=== PATIENT | male | born 1965 | race Caucasian/White ===

== ENCOUNTER 2018-01-05 10:37 | Inpatient (IN) | payer OTHER ==
[~2018-01-05] VITALS: Ht 177.8 cm; Wt 71.9 kg
--- NOTE | ~2018-01-05 | O ---
[place], [place] OPERATIVE NOTE NAME: [facility]ITA [id number] UNIT #: [id number] ROOM: 524 DOCTOR: CARLOS WARD DO BIRTHDATE: [birth year] DOS: 01/07/2018 PREOPERATIVE DIAGNOSIS: Left tibia and fibular fracture with displacement and angulation. POSTOPERATIVE DIAGNOSIS: Left tibia and fibular fracture with displacement and angulation. OPERATIVE PROCEDURE: Intramedullary janny fixation of the left tibial fracture. SURGEON: Carlos Ward DO HUMAN RESOURCES OFFICER: Sreekanth Molina. ANESTHESIA: LEAH Shanks. General endotracheal. INDICATIONS: The patient is a 52-year-old male with a history of an injury at work where he was exercising a horse and the horse ran him into a fence causing a comminuted displaced distal tibia and fibula fracture. The risks and benefits of the procedure were explained to the patient preoperatively. Preoperative labs and x-rays were obtained. PROCEDURE IN DETAIL: The left lower extremity was marked in the holding room. The patient was brought to the operative suite. A general anesthetic with endotracheal intubation was performed. The patient had previously received adductor block by Anesthesia. The patient was placed supine on the operative table. General anesthetic with endotracheal intubation was performed. The timeout was performed. The patient received Ancef 2 grams IV piggyback preoperatively. Tourniquet was placed on the left upper thigh. The extremity was prepped and draped in the usual orthopedic fashion. The tourniquet was not inflated. The C-arm was utilized to evaluate the fracture site as well as the entry site of the proximal tibia. The incision was marked between the mid patella and the tibial tubercle. The area was injected with Marcaine 0.5% with epinephrine. The incision was made sharply with a scalpel. Subcutaneous tissue was spread down to the level of the paratenon. This was divided. The patellar tendon was divided longitudinally along its fibers. A partially threaded guidewire was placed anteriorly, proximal to the tibial tubercle in an antegrade fashion. Position was evaluated under C-arm. When this was found to be adequate, the cannulated awl was placed over the guidewire. The ball-tipped guidewire was then placed at the entry point and followed under C-arm through the medullary canal and across the fracture site into the distal femur to the level of the physeal scar. When this was adequately positioned, the cannulated flexible reamers were placed over the guide janny and beginning with an 8 mm reamer, progressed 0.5 mm increments to a 10 mm reamer. When this was found to be adequate, the T1 janny measuring 345 mm x 9 mm was placed over the guide janny and advanced distally crossing the fracture site and into the distal tibia to the level of the physeal scar. When this was found to be adequate, the [place], [place] OPERATIVE NOTE NAME: ZACHARY KEITA UNIT #: [id number] ROOM: 524 DOCTOR: CARLOS WARD DO BIRTHDATE: [birth year] radiolucent aiming device was placed proximally and a medial and lateral oblique screw were placed through the guide. The triple cannula system was utilized advancing to the skin. The skin was injected with Marcaine 0.5% with epinephrine. A small skin incision was made. Subcutaneous tissue was spread down to the level of the bone. The cannula was advanced to the bone. The drill was used through the cannula. The length was then measured for the screw. The screw was advanced in a bicortical fashion by hand. When this was found to be adequate, the proximal aiming device was removed. Using a freehand technique, the screw holes were visualized and the skin was injected with Marcaine 0.5% with epinephrine. A small incision was made. Subcutaneous tissue was spread down to the level of the bone. Under the freehand technique, the drill was placed first from anterior to posterior through the distal locking hole. The length was measured. The screw was then advanced under C-arm guidance. The technique was repeated. This was from a medial to lateral direction. When this was completed, the positions were evaluated under C-arm at the proximal tibial nail, the distal tibial nail and the fracture site. This was found to be adequate. The areas were copiously irrigated with normal saline. The wound was closed with 0 Vicryl for the patellar tendon followed by 2-0 Vicryl for the paratenon and subcutaneous layer. Skin rebecca completed the closure. The four small incisions were copiously irrigated with normal saline and closed with 2-0 Vicryl followed by skin rebecca. The dressing was completed with Xeroform, 4 x 4s, multiple layers of cast padding, ABDs, and an Yoan bandage. The anesthetic was reversed. The patient was extubated and taken to the recovery room in satisfactory condition. Sponge and needle count correct. ESTIMATED BLOOD LOSS: 250 mL. SPECIMENS: None. DRAINS: None. PACKING: None. COMPLICATIONS: None. FINDINGS: Fracture of the distal one-third of the tibia and fibular shaft left with comminution and displacement. IMPLANTS: Synthes T1 IM janny EX 345 x 9 mm. Locking screws, 4.0 mm x 46, 24, 38, 22. [place], [place] OPERATIVE NOTE NAME: ZACHARY KEITA UNIT #: [id number] ROOM: 524 DOCTOR: CARLOS WARD DO BIRTHDATE: [birth year] CARLOS WARD DO CM:OPRECORD:OPERATIVE NOTE 58 36 CARLOS WARD DO 01/07/182034 interface
--- NOTE | ~2018-01-05 | EKG ---
[place], [place] ELECTROCARDIOGRAM REPORT NAME: ZACHARY KEITA UNIT #: [id number] ROOM: 524 DOCTOR: SIM DRAFT REPORT BIRTHDATE: [birth year] [facility] Test Date: 2018-01-05 Test Time: 12:18:26 Pat Name: ZACHARY KEITA Department: Room: 524 Gender: M Insurance Examiner: CHERYL : 1965 Requested By: DANIELLE GONGORA Order Number: [id number] Reading MD: Олег Bates MD Measurements Intervals [place] Rate: 84 P: 50 [place]: 131 QRS: -43 QRSD: 90 T: 51 QT: 374 QTc: 443 Interpretive Statements Sinus rhythm Electronically Signed On 01-05-2018 18:44:55 PDT by Олег Bates MD CM:EKGRPT:ELECTROCARDIOGRAM REPORT [id number] DANIELLE GONGORA EPIPHANY DRAFT REPORT DANIELLE GONGORA
[2018-01-05 08:00] VITALS: BP 121/79
[~2018-01-05 10:37] MED LIST: ALBUTEROL0.09 MG/A2 IH; CORDROL20 MG PO; FIORICET 325 MG1 TAB PO; ORASONE5 MG PO; PHENERGAN W/ COD5 ML PO; VIBRAMYCIN100 MG PO; ZOFRAN ODT4 MG PO
[2018-01-05 10:44] VITALS: BP 123/77
[2018-01-05 12:00] VITALS: BP 137/75
[2018-01-05 12:25] LABS: BASO # 0.1 10*3/uL (0.0-0.1); BASO % 0.4 % (0.0-1.0); EOS # 0.3 10*3/uL (0.0-0.4); EOS % 2.1 % (1.0-4.0); HEMATOCRIT 46.7 % (42.0-52.0); HEMOGLOBIN 15.5 g/dl (14.0-18.0); LYMPH # 0.9 10*3/uL (1.3-4.4); MEAN CELL VOLUME 96.3 fl (80.0-94.0); MEAN CORPUSCULAR HGB CONC 33.2 g/dl (33.0-37.0); MEAN PLATELET VOLUME 9.3 fl (9.6-12.3); MONO # 1.1 10*3/uL (0.1-1.0); MONO % 8.6 % (3.0-9.0); NEUT # 10.3 10*3/uL (2.3-7.9); NEUT % 81.6 % (47.0-73.0); PLATELET COUNT AUTOMATED 221 10*3/uL (130-400); RED BLOOD COUNT 4.85 10*6/uL (4.50-5.90); RED CELL DISTRI WIDTH 12.6 % (0-14.5); WHITE BLOOD COUNT 12.7 10*3/uL (4.8-10.8)
[2018-01-05 12:38] LABS: ALBUMIN 4.2 gm/dl (3.1-4.5); ALKALINE PHOSPHATASE 72 U/L (45-117); BUN 15 mg/dl (7-24); CHLORIDE 103 mmol/L (98-107); CREATININE 1.37 mg/dL (0.70-1.30); POTASSIUM 4.2 mmol/L (3.5-5.1); SGOT/AST 20 IU/L (3-35); SGPT/ALT 28 U/L (12-78); SODIUM 139 mmol/L (136-145); TOTAL PROTEIN 7.9 gm/dL (6.4-8.2)
[2018-01-05 13:06] LABS: BILIRUBIN NEGATIVE (NEGATIVE); BLOOD NEGATIVE (NEGATIVE); CLARITY SL CLOUDY (CLEAR); COLOR YELLOW (YELLOW); GLUCOSE NEGATIVE (NEGATIVE); KETONE NEGATIVE (NEGATIVE); LEUKO ESTERASE NEGATIVE (NEGATIVE); NITRITE NEGATIVE (NEGATIVE); SPECIFIC GRAVITY >= 1.030 (1.005-1.030); UROBILINOGEN 0.2 E.U./dl (0.2-1.0)
[2018-01-05 13:28] LABS: BACTERIA TRACE; CALCIUM OXALATE CRYSTALS 1+; MUCOUS 2+
[2018-01-05 14:00] VITALS: BP 121/75
[2018-01-05] MEDS ORDERED: ACID REDUCER20 MG PO (14:35)
[2018-01-05 20:00] VITALS: BP 119/60
[2018-01-06] VITALS (7 sets, daily range): BP systolic 123–139; BP diastolic 65–105
[2018-01-06 06:55] LABS: BASO # 0.1 10*3/uL (0.0-0.1); BASO % 0.8 % (0.0-1.0); EOS # 0.5 10*3/uL (0.0-0.4); EOS % 6.4 % (1.0-4.0); LYMPH # 1.6 10*3/uL (1.3-4.4); LYMPH % 20.2 % (27.0-41.0); MEAN CELL VOLUME 97.4 fl (80.0-94.0); MEAN CORPUSCULAR HGB 32.4 pg (27.0-31.0); MEAN CORPUSCULAR HGB CONC 33.2 g/dl (33.0-37.0); MEAN PLATELET VOLUME 9.7 fl (9.6-12.3); MONO # 1.1 10*3/uL (0.1-1.0); MONO % 13.8 % (3.0-9.0); NEUT # 4.6 10*3/uL (2.3-7.9); NEUT % 58.5 % (47.0-73.0); PLATELET COUNT AUTOMATED 163 10*3/uL (130-400); RED BLOOD COUNT 3.86 10*6/uL (4.50-5.90); RED CELL DISTRI WIDTH 12.6 % (0-14.5); WHITE BLOOD COUNT 7.8 10*3/uL (4.8-10.8)
[2018-01-06 07:10] LABS: ALKALINE PHOSPHATASE 56 U/L (45-117); BUN 12 mg/dl (7-24); CHLORIDE 108 mmol/L (98-107); CHOLESTEROL 119 mg/dL (<200); CREATININE 1.08 mg/dL (0.70-1.30); HDL CHOLESTEROL 49 mg/dl (40-60); LDL CHOLESTEROL 59 mg/dL (9-159); POTASSIUM 3.9 mmol/L (3.5-5.1); SGOT/AST 14 IU/L (3-35); SGPT/ALT 23 U/L (12-78); SODIUM 140 mmol/L (136-145); TOTAL PROTEIN 5.8 gm/dL (6.4-8.2); TRIGLYCERIDES 55 mg/dl (<150); VLDL CHOLESTEROL 11 mg/dL (6-40)
[2018-01-06 07:16] LABS: FREE T4 0.92 ng/dl (0.76-1.46)
[2018-01-06 07:19] LABS: ACT PARTIAL THROMBO TIME 22.5 SECONDS (20.8-31.5); HEMATOCRIT 37.6 % (42.0-52.0); HEMOGLOBIN 12.5 g/dl (14.0-18.0); INTERNATIONAL NORM RATIO 0.9 (2.0-3.5)
[2018-01-06 07:55] LABS: VITAMIN D, 25-HYDROXY 17.8 ng/mL (30-100)
[2018-01-07] VITALS (9 sets, daily range): BP systolic 111–148; BP diastolic 57–85
[2018-01-07 06:05] LABS: BASO # 0.1 10*3/uL (0.0-0.1); BASO % 0.7 % (0.0-1.0); EOS # 0.6 10*3/uL (0.0-0.4); EOS % 7.5 % (1.0-4.0); HEMOGLOBIN 13.6 g/dl (14.0-18.0); LYMPH # 1.6 10*3/uL (1.3-4.4); LYMPH % 19.2 % (27.0-41.0); MEAN CELL VOLUME 96.9 fl (80.0-94.0); MEAN CORPUSCULAR HGB 32.2 pg (27.0-31.0); MEAN CORPUSCULAR HGB CONC 33.2 g/dl (33.0-37.0); MEAN PLATELET VOLUME 9.6 fl (9.6-12.3); NEUT # 5.1 10*3/uL (2.3-7.9); NEUT % 60.5 % (47.0-73.0); PLATELET COUNT AUTOMATED 199 10*3/uL (130-400); RED BLOOD COUNT 4.23 10*6/uL (4.50-5.90); RED CELL DISTRI WIDTH 12.3 % (0-14.5); WHITE BLOOD COUNT 8.5 10*3/uL (4.8-10.8)
[2018-01-07 06:20] LABS: BUN 14 mg/dl (7-24); CHLORIDE 104 mmol/L (98-107); CREATININE 1.23 mg/dL (0.70-1.30); POTASSIUM 4.2 mmol/L (3.5-5.1); SODIUM 139 mmol/L (136-145)
[2018-01-08] VITALS: BP 128/72
[2018-01-08 08:00] VITALS: BP 140/78
[2018-01-08 12:00] VITALS: BP 136/80
[2018-01-08] MEDS ORDERED: NATURE'S BLEND F1 MG PO (14:49)
[2018-01-08] MEDS ORDERED: MEDI-FIRST ASP325 MG PO (14:49)
[2018-01-08] MEDS ORDERED: VITAMIN D5000 UNI1 PO (14:49)
[2018-01-08] MEDS ORDERED: NORCO 5-325 TA1 EACH PO (14:50)
[2018-01-08] MEDS ORDERED: ASPIRIN LITE C325 MG PO (16:08)
== END 2018-01-08 15:25 | disposition home or self-care (01) | DRG 492 ==
LOC: ED 10:37 → 5E 13:27 → EDHOLD 13:27 → 5E 13:27
PROVIDERS: Internal Medicine; Nurse Practitioner Family
PROC: 0QSH06Z Reposition Left Tibia with Intramedullary Internal Fixation Device, Open Approach (ICD-10-PCS; principal; 2018-01-07)
DX: S82.232A Displaced oblique fracture of shaft of left tibia, initial encounter for closed fracture (principal); N17.0 Acute kidney failure with tubular necrosis; R73.9 Hyperglycemia, unspecified; E80.6 Other disorders of bilirubin metabolism; S82.432A Displaced oblique fracture of shaft of left fibula, initial encounter for closed fracture; D72.829 Elevated white blood cell count, unspecified; D75.89 Other specified diseases of blood and blood-forming organs; K21.9 Gastro-esophageal reflux disease without esophagitis; Z91.048 Other nonmedicinal substance allergy status; Z83.6 Family history of other diseases of the respiratory system; Z82.49 Family history of ischemic heart disease and other diseases of the circulatory system; Z79.899 Other long term (current) drug therapy; V80.010A Animal-rider injured by fall from or being thrown from horse in noncollision accident, initial encounter; Y93.89 Activity, other specified; Y92.89 Other specified places as the place of occurrence of the external cause; Y99.8 Other external cause status

== ENCOUNTER → 2018-01-21 | Outpatient (CLI) | payer OTHER ==
[~2018-01-21] MED LIST changes: +ACID REDUCER20 MG PO; +ASPIRIN LITE C325 MG PO; +MEDI-FIRST ASP325 MG PO; +NATURE'S BLEND F1 MG PO; +NORCO 5-325 TA1 EACH PO; +VITAMIN D5000 UNI1 PO
== END | disposition home or self-care (01) ==
LOC: ORTHO 00:48
DX: S82.202D Unspecified fracture of shaft of left tibia, subsequent encounter for closed fracture with routine healing (principal); S82.402D Unspecified fracture of shaft of left fibula, subsequent encounter for closed fracture with routine healing; X58.XXXD Exposure to other specified factors, subsequent encounter

== ENCOUNTER → 2018-02-11 | Outpatient (CLI) | payer OTHER | END | disposition home or self-care (01) | LOC: ORTHO 07:20 | DX: S82.202D Unspecified fracture of shaft of left tibia, subsequent encounter for closed fracture with routine healing (principal); S82.402D Unspecified fracture of shaft of left fibula, subsequent encounter for closed fracture with routine healing; X58.XXXD Exposure to other specified factors, subsequent encounter ==

== ENCOUNTER → 2018-04-08 | Outpatient (CLI) | payer OTHER | LOC: ORTHO 04:30 | DX: S82.202D Unspecified fracture of shaft of left tibia, subsequent encounter for closed fracture with routine healing (principal); S82.402D Unspecified fracture of shaft of left fibula, subsequent encounter for closed fracture with routine healing; X58.XXXD Exposure to other specified factors, subsequent encounter ==

== ENCOUNTER → 2018-05-20 | Outpatient (CLI) | payer OTHER | LOC: ORTHO 01:40 | DX: S82.202D Unspecified fracture of shaft of left tibia, subsequent encounter for closed fracture with routine healing (principal); X58.XXXD Exposure to other specified factors, subsequent encounter ==